=== PATIENT | female | born 1965 | race Caucasian/White ===

== ENCOUNTER 2022-11-27 07:51 | Day surgery (SDC) | payer OTHER ==
[~2022-11-27] VITALS: Ht 157.5 cm; Wt 103.9 kg
[~2022-11-27 07:51] MED LIST: CEFAZOLIN SOD 1 GM/ ISO 50 ML PREMIX IV ONE
[2022-11-27] MEDS ORDERED: LIDOCAINE 1%, 20 ML MDV 20 ML ONE (08:00)
[2022-11-27] MEDS ORDERED: BUPIVACAINE /EPINEPHRINE/PF 0.25% 30 ML VIAL ONE (10:28)
[2022-11-27] MEDS ORDERED: fentaNYL CITRATE/PF 100 MCG/2 ML AMP ONE (10:28)
[2022-11-27] MEDS ORDERED: NS IRRIG SOLN 1000 ML IR ONE (10:28)
[2022-11-27] MEDS ORDERED: SEVOFLURANE 15 MIN GAS INH ONE (10:28)
[2022-11-27] MEDS ORDERED: NS 50 ML BAG IV ONE (10:28)
[2022-11-27] MEDS ORDERED: ONDANSETRON HCL 4 MG/2 ML VIAL ONE (10:28)
[2022-11-27] MEDS ORDERED: WATER FOR IRRIGATION,STERILE 1,000 ML IRRIG.SOLN IR ONE (10:28)
[2022-11-27] MEDS ORDERED: ISOSULFAN BLUE 5 ML VIAL (LYMPHAZURIN) ONE (10:28)
[2022-11-27] MEDS ORDERED: PROPOFOL 200MG/ 20ML VIAL (DIPRIVAN) IV ONE (10:28)
[2022-11-27] MEDS ORDERED: MIDAZOLAM HCL 5 MG/5 ML VIAL ONE (10:28)
[2022-11-27] MEDS ORDERED: IPRA3AMP9 INH (10:45)
[2022-11-27] MEDS ORDERED: LURA40TA2 PO (10:45)
[2022-11-27] MEDS ORDERED: LOSA25TA3 PO (10:45)
[2022-11-27] MEDS ORDERED: DIVA250T PO (10:45)
[2022-11-27] MEDS ORDERED: SIMV-345 PO (10:45)
[2022-11-27] MEDS ORDERED: SER25 PO (10:45)
[2022-11-27] MEDS ORDERED: VITD2000 PO (10:45)
[2022-11-27] MEDS ORDERED: HYDR200T80 PO (10:45)
[2022-11-27] MEDS ORDERED: MULT-976 PO (10:45)
[2022-11-27] MEDS ORDERED: TRAZ-250 PO (10:45)
[2022-11-27] MEDS ORDERED: FLUT1BLS5 IH (10:45)
[2022-11-27] MEDS ORDERED: ALBMDI INH (10:45)
[2022-11-27] MEDS ORDERED: ONDANSETRON HCL 4 MG/2 ML VIAL IVP PRN ×2 (11:45→12:45)
[2022-11-27] MEDS ORDERED: METOCLOPRAMIDE HCL 10 MG/2 ML VIAL IVP PRN (11:45)
[2022-11-27] MEDS ORDERED: IPRATROPIUM/ALBUTEROL SULFATE 3 ML AMPUL.NEB (DUONEB) INH ONE (11:45)
[2022-11-27] MEDS ORDERED: LABETALOL 100 MG/ 20ML VIAL IVP PRN (11:45)
[2022-11-27] MEDS ORDERED: HYDROmorphone 1 MG/ML INJ. CARTRIDGE IVP PRN (11:45)
[2022-11-27] MEDS ORDERED: MIDAZOLAM HCL 2 MG/2 ML VIAL (VERSED) IVP PRN (12:30)
[2022-11-27] MEDS ORDERED: HYDROcodone/ACETAMIN 5-325 MG TAB (NORCO/ VICODIN) PO PRN ×2 (12:45)
[2022-11-27] MEDS ORDERED: ACETAMINOPHEN 325 MG TABLET PO PRN (12:45)
[2022-11-27 14:00] VITALS: BP_SYST 127
[2022-11-27 14:41] VITALS: BP_SYST 127
[2022-11-27] MEDS: CEFAZOLIN 1 GM IVPB PREMIX 50 ML IV SCH ×2 (15:28→21:24)
[2022-11-27] MEDS ORDERED: ALBUTEROL MDI INHALATION 8 GM INH INH PRN (17:15)
[2022-11-27] MEDS ORDERED: IPRATROPIUM/ALBUTEROL SULFATE 3 ML AMPUL.NEB (DUONEB) INH PRN (17:15)
[2022-11-27 17:27] VITALS: BP_SYST 119
[2022-11-27] MEDS: D5/0.45 NS 1,000 ML IV SCH (17:48)
[2022-11-27] MEDS ORDERED: ALBUTEROL SULFATE 0.083% 2.5 MG/3 ML VIAL.NEB INH PRN (18:15)
[2022-11-27] MEDS ORDERED: IPRATROPIUM BROM 0.5 MG/2.5 ML VIAL.NEB (ATROVENT) INH PRN (18:15)
[2022-11-27] MEDS ORDERED: LOSARTAN POTASSIUM 25 MG TABLET PO ONE (18:30)
[2022-11-27 20:00] VITALS: BP_SYST 100
[2022-11-27] MEDS ORDERED: traZODone HCL 50 MG TABLET (DESYREL) PO SCH (21:00)
[2022-11-27] MEDS ORDERED: QUEtiapine FUMARATE 25 MG TABLET PO SCH (21:00)
[2022-11-27] MEDS ORDERED: SIMVASTATIN 40 MG TABLET PO SCH (21:00)
[2022-11-27] MEDS: DIVALPROEX SODIUM 250 MG TAB.SR.24H (DEPAKOTE ER) PO SCH (21:01)
[2022-11-28] VITALS: BP_SYST 112
[2022-11-28] MEDS: D5/0.45 NS 1,000 ML IV SCH ×2 (00:38→08:22)
[2022-11-28 04:54] LABS: BASOPHILS % (AUTO) 0.3 % (0.0-2.0); EOSINOPHILS % (AUTO) 0.1 % (0.0-4.0); HEMATOCRIT 38.6 % (36-48); HEMOGLOBIN 12.8 g/dL (12.0-16.0); LYMPHOCYTES # (AUTO) 1.4 K/uL (1.0-5.5); LYMPHOCYTES % (AUTO) 14.4 % (20.5-51.5); MEAN CORPUSCULAR HEMOGLOBIN 30 pg (27-31); MEAN CORPUSCULAR HGB CONC 33 % (32-36); MEAN CORPUSCULAR VOLUME 91 fL (79.0-98.0); MONOCYTES # (AUTO) 0.8 K/uL (0.0-1.0); MONOCYTES % (AUTO) 8.2 % (1.7-9.3); NEUTROPHILS # (AUTO) 7.7 K/uL (1.8-7.7); PLATELET COUNT (AUTO) 190 K/uL (130-430); RED BLOOD CELL COUNT(AUTO) 4.24 MIL/uL (4.2-6.2); RED CELL DISTRIBUTION WIDTH 14.3 % (9.0-15.0)
[2022-11-28 05:14] LABS: CALCIUM 8.3 mg/dL (8.4-11.0); CREATININE 1.43 mg/dL (0.55-1.30)
[2022-11-28 08:00] VITALS: BP_SYST 91
[2022-11-28] MEDS: DIVALPROEX SODIUM 250 MG TAB.SR.24H (DEPAKOTE ER) PO SCH (08:21)
[2022-11-28] MEDS ORDERED: LOSARTAN POTASSIUM 25 MG TABLET PO SCH (09:00)
[2022-11-28] MEDS ORDERED: CHOLECALCIFEROL (VITAMIN D3) 2,000 UNIT TABLET PO SCH (09:00)
[2022-11-28 10:25] VITALS: BP_SYST 91
[2022-11-28 11:38] VITALS: BP_SYST 112
[2022-11-29] MEDS ORDERED: HYDROXYCHLOROQUINE SULFATE 200 MG TABLET PO SCH (09:00)
== END 2022-11-28 11:30 | disposition home or self-care (01) ==
LOC: SDS 07:51 → SMU 07:51 → STU 13:03 → SDS 11-28 11:30
PROVIDERS: ATTEND Colon & Rectal Surgery
DX: C50.912 Malignant neoplasm of unspecified site of left female breast (principal); A01 Typhoid and paratyphoid fevers; I10 Essential (primary) hypertension; J44.9 Chronic obstructive pulmonary disease, unspecified; E78.5 Hyperlipidemia, unspecified; E66.01 Morbid (severe) obesity due to excess calories; Z68.41 Body mass index [BMI] 40.0-44.9, adult; F17.210 Nicotine dependence, cigarettes, uncomplicated; Z79.899 Other long term (current) drug therapy
CPT/HCPCS: 36415; 76098-TC; 78195; 80048; 85025; 87081; 88305; 88307; A9541; C1819; J0690; J2001; J2250; J2405; J2704; J3010; J3490; J7120; Q9968